=== PATIENT | male | born 1995 | race Caucasian/White ===

== ENCOUNTER 2023-10-17 22:12 | Emergency (ER) | payer MEDICAID ==
[~2023-10-17] VITALS: Ht 182.9 cm; Wt 81.6 kg
[2023-10-17 22:47] VITALS: BP 112/65; PULSE 88; RESP 16; TEMP 98.4; O2SAT 99
[2023-10-18] MEDS ORDERED: ACETAMINOPHEN EXTRA STRENGTH 500 MG TAB ONE (00:34)
[2023-10-18] MEDS: ACETAMINOPHEN EXTRA STRENGTH 500 MG TAB PO ONE (00:48)
[2023-10-18 01:19] LABS: FLU A ANTIGEN negative (NEGATIVE); FLU B ANTIGEN NEGATIVE (NEGATIVE)
[2023-10-18] MEDS ORDERED: AMOX-1230 PO (01:41)
[2023-10-18] MEDS ORDERED: IBUP-2213 PO (01:41)
[2023-10-18] MEDS: DEXAMETHASONE 10 MG/ML VIAL PO ONE (01:46)
[2023-10-18] MEDS: AMOXIL/CLAVULANATE 875/125 MG 1 TAB PO ONE (01:46)
[2023-10-18 02:01] VITALS: TEMP 99.6
== END 2023-10-18 02:01 | disposition home or self-care (01) ==
LOC: MED 22:12
DX: J02.9 Acute pharyngitis, unspecified (principal); Z20.822 Contact with and (suspected) exposure to COVID-19; Z79.899 Other long term (current) drug therapy
CPT/HCPCS: 87081; 87426; 87804; 99284; J1100